=== PATIENT | female | born 1995 | race American Indian/Alaskan Native ===

== ENCOUNTER 2020-03-02 02:59 | Outpatient (CLI) | payer MEDICAID ==
[2020-03-02 04:21] VITALS: BP 148/96
== END 2020-03-02 04:24 | disposition home or self-care (01) ==
LOC: TRG 02:59 → APU 03:01 → TRG 04:24
PROVIDERS: ATTEND Obstetrics & Gynecology
DX: O47.1 False labor at or after 37 completed weeks of gestation (principal); Z3A.39 39 weeks gestation of pregnancy
CPT/HCPCS: 59025

== ENCOUNTER 2020-05-07 08:43 | Day surgery (SDC) | payer MEDICAID ==
[2020-05-07] MEDS ORDERED: MAGNESIUM OXIDE 400 MG TAB PO NR (09:54)
[2020-05-07] MEDS ORDERED: ONDANSETRON 4 MG/2 ML INJ IV PRN (09:54)
[2020-05-07] MEDS ORDERED: HYDROmorphone 1 MG/1 ML INJ IV PRN ×2 (09:54)
[2020-05-07] MEDS ORDERED: ACETAMINOPHEN 500 MG TAB PO NR (09:54)
--- NOTE | 2020-05-07 09:55 | Anesthesia Day of Surgery ---
Anesthesia Day of Surgery - Day of Surgery Patient Examined: Yes Patient H&P Reviewed: Yes Patient is NPO: Yes
--- NOTE | 2020-05-07 09:56 | Anesthesia Consultation ---
Anesthesia Consult and Med Hx Date of service: 05/07/20 - Airway Anesthetic Teeth Evaluation: Good ROM Head & Neck: Adequate Mental/Hyoid Distance: Adequate Mallampati Class: Class II Intubation Access Assessment: Good - Pre-Operative Health Status ASA Pre-Surgery Classification: ASA2 Proposed Anesthetic Plan: General - Pulmonary Hx Smoking: Yes Hx Asthma: No COPD: No Hx Pneumonia: No - Cardiovascular System Hx Hypertension: Yes (After , resolved now) - Central Nervous System Hx Neuromuscular Disorder: Yes (Migraines) Hx Seizures: No Hx Back Pain: Yes (Hurt her back a few days ago) Hx Psychiatric Problems: No - Endocrine Hx Renal Disease: No Hx End Stage Renal Disease: No Hx Hypothyroidism: No Hx Hyperthyroidism: No - Hematic Hx Anemia: Yes (No meds) Hx Sickle Cell Disease: No - Other Systems Hx Alcohol Use: No Hx Cancer: No Hx Obesity: Yes
[2020-05-07] MEDS ORDERED: CELECOXIB 200 MG CAP PO NR (10:00)
[2020-05-07] MEDS ORDERED: MIDAZOLAM 2 MG/2 ML INJ IV NR (10:00)
[2020-05-07] MEDS ORDERED: LACTATED RINGERS 1,000 ML IV SCH (10:00)
[2020-05-07] MEDS ORDERED: GABAPENTIN 300 MG CAP PO NR (10:00)
--- NOTE | 2020-05-07 10:11 | Short Stay Summary ---
Short Stay Documentation Date of service: 05/07/20 Narrative H&P: 25-year-old -0-0-3 with undesired fertility. The patient has elected to undergo a tubal ligation with Filshie clips. She is aware of other contraceptive options. - History Principal diagnosis: Unwanted fertility Past Medical History: No medical history Past Surgical History: No surgical history Social history: single - Allergies and Medications Current Medications: Allergies No Known Allergies Allergy (Verified 04/30/20 16:46) Home Medications Medication Instructions Recorded Confirmed Last Taken Type No Known Home Medications [No 04/30/20 04/30/20 Unknown History Reported Home Medications] Active Medications Acetaminophen (Tylenol) 1,000 mg PO ONCE NR Stop: 05/07/20 18:00 Celecoxib (Celebrex) 400 mg PO PREOP NR Stop: 05/07/20 20:00 Gabapentin (Gabapentin) 300 mg PO PREOP NR Stop: 05/07/20 20:00 Hydromorphone HCl (Dilaudid) 0.25 mg IV Q10MIN PRN PRN Reason: Pain, Moderate (4-6) Stop: 05/07/20 23:00 Hydromorphone HCl (Dilaudid) 0.5 mg IV Q10MIN PRN PRN Reason: Pain , Severe (7-10) Stop: 05/07/20 23:00 Lactated Ringer's (Lactated Ringers) 1,000 mls @ 100 mls/hr IV DIRECT PAL Magnesium Oxide (Mag-Ox) 400 mg PO ONCE NR Stop: 05/07/20 20:00 Midazolam HCl (Versed) 2 mg IV PREOP NR Stop: 05/07/20 23:59 Ondansetron HCl (Zofran) 4 mg IV ONCE PRN PRN Reason: Nausea And Vomiting Stop: 05/07/20 23:00 - Physical exam General appearance: no acute distress Integumentary: no rash HEENT: Atraumatic Lungs: Clear to auscultation Breasts: deferred Heart: Regular rate Gastrointestinal: normal Female Genitourinary: deferred Rectal Exam: deferred Extremities: no ischemia - Brief post op/procedure progress note Date of procedure: 05/07/20 Pre-op diagnosis: Unwanted fertility Post-op diagnosis: same Procedure: Laparoscopic bilateral tubal ligation with Filshie clips Anesthesia: BEATRIS Surgeon: JAYCOB SWEENEY Estimated blood loss: minimal Pathology: none Condition: stable - Hospital course Hospital course: The patient was admitted the day of surgery and underwent a laparoscopic bilateral tubal ligation. Please see operative note for details of surgery. Her postoperative course was uneventful. - Disposition Condition at discharge: Good Disposition: DC-[id number] TO HOME OR SELFCARE - Discharge Diagnoses (1) Unwanted fertility Status: Acute Short Stay Discharge Plan Activity: other (Pelvic rest for 1 week) Diet: regular Additional Instructions: Follow-up is not required Follow-up as needed Prescriptions: Ibuprofen [Motrin] 800 mg PO Q8HR PRN #30 tablet PRN Reason: Pain , Severe (7-10) HYDROcodone/APAP 5-325 [[place] 5/325] 1 each PO Q6HR PRN #15 tablet PRN Reason: Pain
[2020-05-07] MEDS ORDERED: LIDOCAINE MPF (2%) 20 MG/1 ML VIAL 5 ML ONE (11:12)
[2020-05-07] MEDS ORDERED: ROCURONIUM 50 MG/5 ML INJ IV ONE (11:12)
[2020-05-07] MEDS ORDERED: propofoL 200 MG/20 ML VIAL IV ONE (11:12)
[2020-05-07] MEDS ORDERED: HYDROmorphone 1 MG/1 ML INJ ONE (11:12)
[2020-05-07] MEDS ORDERED: BUPIVACAINE/PF (0.5%) 5 MG/1 ML 10 ML VIAL INFILTRATI ONE ×2 (11:20→12:07)
[2020-05-07] MEDS ORDERED: SODIUM CHLORIDE 0.9% IRR 1,500 ML BOTTLE IR ONE (12:07)
[2020-05-07] MEDS ORDERED: NEOSTIGMINE 10MG/10 ML INJ MDV ONE (12:15)
[2020-05-07] MEDS ORDERED: GLYCOPYRROLATE 0.4 MG/2 ML INJ ONE (12:15)
[2020-05-07] MEDS ORDERED: ONDANSETRON 4 MG/2 ML INJ ONE (12:16)
[2020-05-07] MEDS ORDERED: KETOROLAC 30 MG/1 ML INJ ONE (12:16)
--- NOTE | 2020-05-07 12:24 | Operative Report ---
Operative Report Operative Report: Date of surgery: May 07, 2020 Preoperative diagnosis: Unwanted fertility Postoperative diagnosis: Same as above Procedure: Laparoscopic bilateral tubal ligation with Filshie clips Surgeon: Kimmy Melvin M.D. Anesthesia: General endotracheal anesthesia Estimated blood loss: Minimal Findings: Normal uterus tubes and ovaries Indication: 25-year-old -0-0-3 with undesired fertility. The patient is elected for permanent sterilization. Procedure: The patient was taken to the operating room and given general endotracheal anesthesia without complication. The patient is prepped and draped in a normal sterile fashion. A bivalve speculum was placed in the patient's vagina and a single-tooth tenaculum was placed on the anterior lip of the cervix .A uterine acorn manipulator was placed, and the bivalve speculum was then removed. Attention was then turned to the patient's abdomen where a 5 mm infraumbilical skin incision was then made. A Veress needle was placed and peritoneal entry was verified water-filled syringe. Insufflation of the peritoneal cavity was performed with CO2 gas. A 5 mm trocar was placed and the laparoscope was then inserted. The patient was then placed in Trendelenburg. A 7 mm suprapubic skin incision was then made. Under direct visualization a 7 mm trocar was then placed. An additional 5 mm left lateral trocar was also placed. General survey of the patient's abdomen revealed normal uterus tubes and ovaries. The fallopian tube was then followed out to the fimbriated end. A Filshie clip was applied to the ampullary portion of the tube this was performed on the contralateral side as well. 2 Filshie clips had to be applied to the lef t fallopian tube. The trocars were then removed. The pneumoperitoneum was then released. The 5 mm trocar laparoscope was then removed. The skin incisions were then closed with 4-0 Monocryl. The incisions were injected with quarter percent Marcaine. Dressings were applied to the incision. The vaginal instruments were then removed atraumatically. Then successfully extubated and taken to the recovery room. All sponge laps and needle counts were correct x2.
[2020-05-07] MEDS ORDERED: HYDROcodone/ACETAMINOPHEN 5-325 MG TAB PO PRN (13:10)
[2020-05-07 13:29] VITALS: BP 140/83
--- NOTE | 2020-05-07 13:30 | Post Anesthesia Evaluation ---
- Post Anesthesia Evaluation Patient Participated: Yes Airway Patent: Yes Stable Respiratory Function: Yes Nausea/Vomiting: No Temp > 96.8F: Yes Pain Manageable: Yes Adequeate Hydration: Yes Anesthesia Complications: No Block Receding Appropriately: Not Applicable Patient on Ventilator: No
== END 2020-05-07 14:00 | disposition home or self-care (01) ==
LOC: OR 08:43
PROVIDERS: ATTEND Obstetrics & Gynecology
DX: Z30.2 Encounter for sterilization (principal); G43.909 Migraine, unspecified, not intractable, without status migrainosus; F17.210 Nicotine dependence, cigarettes, uncomplicated; I10 Essential (primary) hypertension; E66.9 Obesity, unspecified; D64.9 Anemia, unspecified; Z83.3 Family history of diabetes mellitus; Z79.899 Other long term (current) drug therapy; Z68.39 Body mass index [BMI] 39.0-39.9, adult; Z80.8 Family history of malignant neoplasm of other organs or systems; Z82.49 Family history of ischemic heart disease and other diseases of the circulatory system
CPT/HCPCS: 58671; 81025; J1170; J1885; J2250; J2405; J2704; J2710; J7120